=== PATIENT | female | born 1980 | race Caucasian/White ===

== ENCOUNTER 2019-07-12 09:41 | Emergency (ER) | payer MEDICAID ==
[~2019-07-12] VITALS: Ht 177.8 cm; Wt 83.0 kg
[~2019-07-12 09:41] MED LIST: HYDR-4383 PO
[2019-07-12 09:44] VITALS: BP 128/78
[2019-07-12] MEDS ORDERED: HYDROcodone/acetaminophen 5mg/325mg tablet PO ONE (10:20)
[2019-07-12] MEDS ORDERED: ondansetron 4mg rapidly disintigrating tab PO ONE (10:20)
[2019-07-12] MEDS ORDERED: HYDR-4383 PO (10:34)
[2019-07-12] MEDS ORDERED: ONDA4TAB6 PO (10:34)
[2019-07-12] MEDS ORDERED: AMOX-422 PO (10:35)
== END 2019-07-12 10:54 | disposition home or self-care (01) ==
LOC: ER 09:42
DX: S62.396A Other fracture of fifth metacarpal bone, right hand, initial encounter for closed fracture (principal); W18.30XA Fall on same level, unspecified, initial encounter; Y93.89 Activity, other specified; Y92.89 Other specified places as the place of occurrence of the external cause; Y99.9 Unspecified external cause status
CPT/HCPCS: 29125; 73130; 99284

== ENCOUNTER 2019-07-30 09:48 | Outpatient (CLI) | payer MEDICAID ==
[~2019-07-30 09:48] MED LIST changes: +ONDA4TAB6 PO
== END 2019-07-30 10:30 | disposition home or self-care (01) ==
LOC: ORTHO 09:48
PROVIDERS: ATTEND Nurse Practitioner
DX: S62.336D Displaced fracture of neck of fifth metacarpal bone, right hand, subsequent encounter for fracture with routine healing (principal); F17.200 Nicotine dependence, unspecified, uncomplicated; W22.8XXD Striking against or struck by other objects, subsequent encounter
CPT/HCPCS: 73130; G0463

== ENCOUNTER 2019-08-24 12:40 | Emergency (ER) | payer MEDICAID ==
[~2019-08-24] VITALS: Ht 175.3 cm; Wt 80.0 kg
[2019-08-24 12:53] VITALS: BP 121/76
[2019-08-24] MEDS ORDERED: DOXY100C43 PO (14:19)
[2019-08-24] MEDS ORDERED: ALBU8.5H8 IH (16:59)
== END 2019-08-24 14:50 | disposition home or self-care (01) ==
LOC: ER 12:40
DX: J20.9 Acute bronchitis, unspecified (principal); F17.200 Nicotine dependence, unspecified, uncomplicated
CPT/HCPCS: 99283

== ENCOUNTER 2023-07-19 05:38 | Emergency (ER) | payer MEDICAID ==
[~2023-07-19] VITALS: Ht 175.3 cm; Wt 83.9 kg
[~2023-07-19 05:38] MED LIST changes: +ALBU8.5H17 IH
[2023-07-19 05:42] VITALS: TEMP 98.2
[2023-07-19 06:13] LABS: BASOPHILS # (AUTO) 0.1 X10'3 (0-0.2); BASOPHILS % (AUTO) 0.9 % (0-1); EOSINOPHILS # (AUTO) 0.3 X10'3 (0-0.9); EOSINOPHILS % (AUTO) 3.7 % (0-6); HEMATOCRIT 42.7 % (35.0-45.0); HEMOGLOBIN 14.8 g/dl (12.0-16.0); LYMPHOCYTES % (AUTO) 38.3 % (21-51); MEAN CORPUSCULAR HEMOGLOBIN 33.5 PG (27.0-31.0); MEAN CORPUSCULAR HGB CONC 34.6 g/dL (33.0-36.5); MEAN CORPUSCULAR VOLUME 96.7 FL (78-98); MEAN PLATELET VOLUME 8.2 FL (7.4-10.4); MONOCYTES # (AUTO) 0.8 X10'3 (0-0.9); MONOCYTES % (AUTO) 9.8 % (2-12); NEUTROPHILS # (AUTO) 3.8 X10'3 (1.8-7.7); NEUTROPHILS % (AUTO) 47.3 % (42-75); PLATELET COUNT 363 X10'3 (140-440); RED BLOOD COUNT 4.42 X10'6 (4.20-5.60); RED CELL DISTRIBUTION WIDTH 12.7 % (11.5-14.5); WHITE BLOOD COUNT 7.9 X10'3 (4.5-11.0)
[2023-07-19 06:21] LABS: ALANINE AMINOTRANSFERASE 39 U/L (12-78); ALBUMIN 3.8 G/DL (3.4-5.0); ALKALINE PHOSPHATASE 116 IU/L (46-116); ANION GAP 10 (8-16); ASPARTATE AMINO TRANSFERASE 21 U/L (10-37); BILIRUBIN,TOTAL 0.2 MG/DL (0.1-1.0); BLOOD UREA NITROGEN 19 MG/DL (7-18); BUN/CREATININE RATIO 24.1 (10.0-20.0); CALCIUM 9.1 MG/DL (8.5-10.1); CHLORIDE 104 MMOL/L (99-107); CREATININE 0.79 MG/DL (0.40-0.90); GLUCOSE 96 MG/DL (70-104); LIPASE 50 U/L (16-77); POTASSIUM 4.2 MMOL/L (3.5-5.1); SODIUM 139 MMOL/L (135-145); TOTAL CARBON DIOXIDE 24.9 MMOL/L (24-32); TOTAL PROTEIN 7.5 G/DL (6.4-8.2); eCRCL 96 ML/MIN; eGFR 79 ML/MIN
[2023-07-19] MEDS ORDERED: morphine 4 MG/ML inj SYRINge IV PRN (06:40)
[2023-07-19] MEDS ORDERED: ondansetron/PF 4mg/2ml inj IV ONE (06:40)
[2023-07-19] MEDS ORDERED: normal saline 1000ML IV soln IVB ONE (06:40)
[2023-07-19 07:39] LABS: URINE HCG NEGATIVE (NEG)
[2023-07-19 07:44] LABS: BILIRUBIN,URINE NEGATIVE (Neg); CLARITY,URINE CLEAR (Clear); COLOR,URINE YELLOW (Yellow); GLUCOSE, URINE NEGATIVE (Neg); KETONES,URINE NEGATIVE (Neg); LEUKOCYTE ESTERASE ,URINE TRACE (Neg); NITRITES, URINE NEGATIVE (Neg); OCCULT BLOOD,URINE TRACE-INTACT (Neg); PH,URINE 5.5 (4.8-8.0); PROTEIN,URINE NEGATIVE (Neg); UROBILINOGEN,URINE 0.2 E.U/dL (0.2-1.0)
[2023-07-19 07:48] LABS: UA COLLECTION TYPE CLN CATCH MIDSTREAM
[2023-07-19 07:49] LABS: BACTERIA,URINE FEW /HPF (Neg); MUCUS STRANDS FEW /LPF (Neg); RBC,URINE 0-2 /HPF (0-2); SQUAMOUS EPITHELIAL CELL,UR MODERATE /LPF (FEW); WBC,URINE 0-4 /HPF (0-4)
[2023-07-19 08:30] VITALS: BP 109/71; PULSE 79; O2SAT 100
[2023-07-19 08:33] VITALS: RESP 18
[2023-07-19] MEDS ORDERED: ONDA4TAB12 PO (09:06)
[2023-07-19] MEDS ORDERED: SULF1TAB49 PO (09:06)
[2023-07-19] MEDS ORDERED: HYDR-3965 PO (09:06)
== END 2023-07-19 09:53 | disposition home or self-care (01) ==
LOC: ER 05:39
DX: K52.9 Noninfective gastroenteritis and colitis, unspecified (principal); R11.2 Nausea with vomiting, unspecified; Z98.890 Other specified postprocedural states; Z79.899 Other long term (current) drug therapy
CPT/HCPCS: 36415; 74176; 80053; 81001; 81025; 83690; 85025; 87088; 96361; 96374; 96375; 99285; J2270; J2405; J7030